=== PATIENT | female | born 1960 | race Caucasian/White ===

== ENCOUNTER 2021-09-06 11:49 | Outpatient (CLI) | payer BC | END 2021-09-06 11:50 | disposition home or self-care (01) | LOC: CSHRAD 11:49 | PROVIDERS: ATTEND Internal Medicine | DX: M89.9 Disorder of bone, unspecified (principal) ==

== ENCOUNTER 2024-06-09 13:58 | Outpatient (CLI) | payer BC | END 2024-06-09 13:59 | disposition home or self-care (01) | LOC: CSHMAMMO 13:58 | PROVIDERS: ATTEND Obstetrics & Gynecology | DX: Z12.31 Encounter for screening mammogram for malignant neoplasm of breast (principal); Z80.3 Family history of malignant neoplasm of breast | CPT/HCPCS: 77063; 77067 ==